=== PATIENT | female | born 1940 | race Caucasian/White ===

== ENCOUNTER 2018-12-07 09:48 | Emergency (ER) | payer OTHER ==
[2018-12-07 10:05] VITALS: TEMP 98.5; BMI 31.5
--- NOTE | 2018-12-07 13:00 | PDOC ---
History of Present Illness - General Chief Complaint: Lightheaded Stated Complaint: DIZZYNESS Time Seen by Provider: 12/07/18 12:34 History Source: Patient Exam Limitations: No Limitations - History of Present Illness Initial Comments: 12/07/18 12:36 78YOF with h/o HTN, RLE DVT (dx 2 years ago and on ASA since that time), osteoarthritis, and multiple abdominal surgeries who p/w intermittent room- spinning dizziness which comes with nausea for the past 1.5 days, as well as pain to the back of her neck for the past 2 days. The daughter states that the symptoms started Friday night at which time they measured her blood pressure to be high at home, despite her reportedly taking her normal antihypertensive medication. Past History - Past Medical History Allergies/Adverse Reactions: Allergies Allergy/AdvReac Type Severity Reaction Status Date / Time Penicillins Allergy Verified 12/07/18 10:02 Home Medications: Ambulatory Orders Alendronate Sodium [Binosto] 70 mg PO WEEKLY 12/07/18 Amlodipine Besylate [Norvasc -] 10 mg PO DAILY 12/07/18 Hydrochlorothiazide [Hctz -] 25 mg PO DAILY 12/07/18 COPD: No HTN: Yes Other medical history: osteoporosis - Surgical History Appendectomy: Yes Cholecystectomy: Yes - Suicide/Smoking/Psychosocial Hx Smoking History: Never smoked Review of Systems - Review of Systems Able to Perform ROS?: Yes Comments:: 12/07/18 15:15 GEN: no fever, chills, malaise, generalized weakness, or weight change HEENT: no ear pain, sore throat, vision change, or eye pain CV: no chest pain, palpitations, lightheadedness, syncope, or edema RESP: no cough, wheezing, or SOB GI: nausea, no abdominal pain, vomiting, diarrhea, constipation, or white/black/ bloody stool : no dysuria, hematuria, incontinence, retention, bleeding, or discharge MSK: neck pain, no new back pain, muscle weakness/pain, or joint swelling/pain NEURO: vertigo, no headache, seizure, numbness, tingling, or focal weakness PSYCH: no substance use, no behavior change SKIN: no jaundice, no rash ROS otherwise negative except as noted in HPI *Physical Exam - Vital Signs Last Vital Signs Temp Pulse Resp BP Pulse Ox 98.5 F 82 19 152/74 97 12/07/18 10:03 12/07/18 10:03 12/07/18 10:03 12/07/18 10:03 12/07/18 10:03 - Physical Exam Comments: GENERAL: well-appearing, pleasant Bel[place]ian-speaking elderly female accompanied by family, A/Ox4, no distress, answers questions appropriately HEENT: PERRLA, EOMI, moist mucous membranes NECK/BACK: no midline ttp, no spinal stepoff or deformity, no hematoma, full ROM , neck supple CARDIOVASCULAR: regular rate/rhythm, normal S1S2, no MGR, strong peripheral pulses, capillary refill <2 seconds, extremities wwp, no edema LUNGS/RESPIRATORY: no respiratory distress, CTAB GI/ABDOMEN: symmetric [id number], normoactive BS, soft, no ttp, no midline pulsatile masses : no CVA tenderness EXTREMITIES: no muscle atrophy, no acute deformity SKIN: warm and dry, no pallor, no jaundice, no rash, no bruising, no skin breakdown, no cuts, no lesions NEUROLOGICAL: GCS 15, CN II-XII grossly intact, 5/5 strength proximally and distally, no facial droop, gait not tested, HINTS exam and [place]-Hallpike deferred 2/2 neck pain ED Treatment Course - LABORATORY CBC & Chemistry Diagram: 12/07/18 13:04 12/07/18 13:04 Medical Decision Making - Medical Decision Making 12/07/18 15:18 78YOF p/w room-spinning dizziness x1.5 days and neck pain x2 days. Initial Vital Signs Temp Pulse Resp BP Pulse Ox 98.5 F 82 19 152/74 97 12/07/18 10:03 12/07/18 10:03 12/07/18 10:03 12/07/18 10:03 12/07/18 10:03 Exam: As noted in Physical Exam section. DDX IBNLT: There is concern for neck artery dissection given vertigo+neck pain. Other possibilities peripheral cause (BPPV, otitis media, vestibular neuritis, herpes zoster oticus AKA Cy Cespedes syndrome, Meniere disease, labyrinthine concussion, perilymphatic fistula, semicircular canal dehiscence syndrome, Marino syndrome, recurrent vestibulopathy, acoustic neuroma, aminoglycoside toxicity), central cause (brainstem ischemia or cerebellar infarction or hemorrhage e.g. thromboembolism/thrombosis/dissection, vestibular migraine, multiple sclerosis, Chiari malformation, episodic ataxia type 2), or non- vertiginous cause of dizziness (i.e. lightheadedness c/f pre-syncope). W/U ordered: Labs as noted below, EKG CXR Head CT Neck CTA TX ordered: IV, IVF, meclizine, Ofirmev, IVF 500 cc EKG: Reviewed; results as noted in ECG Review section. Head CT WWO: Nothing acute Neck CTA: Nothing acute Laboratory Tests 12/07/18 12/07/18 12/07/18 13:04 13:04 13:04 WBC 8.1 RBC 4.59 Hgb 13.5 Hct 40.6 MCV 88.5 MCH 29.3 MCHC 33.1 RDW 14.4 Plt Count 166 MPV 11.2 H Absolute Neuts (auto) 4.8 Neutrophils % 59.3 Lymphocytes % 22.8 Monocytes % 16.3 H Eosinophils % 0.8 Basophils % 0.8 Nucleated RBC % 0 PT with INR INR Sodium 138 Potassium 3.8 Chloride 102 Carbon Dioxide 32 Anion Gap 4 L BUN 9.0 Creatinine 0.7 Est GFR (CKD-EPI)AfAm 94.84 Est GFR (CKD-EPI)NonAf 81.83 Random Glucose 97 Calcium 8.9 Magnesium 2.6 H Total Bilirubin 0.3 AST 35 ALT 61 Alkaline Phosphatase 81 Creatine Kinase 150 Creatine Kinase Index 0.9 CK-MB (CK-2) 1.4 Troponin I < 0.02 B-Natriuretic Peptide 96.4 Total Protein 8.0 Albumin 4.3 12/07/18 13:04 WBC RBC Hgb Hct MCV MCH MCHC RDW Plt Count MPV Absolute Neuts (auto) Neutrophils % Lymphocytes % Monocytes % Eosinophils % Basophils % Nucleated RBC % PT with INR 12.70 INR 1.08 Sodium Potassium Chloride Carbon Dioxide Anion Gap BUN Creatinine Est GFR (CKD-EPI)AfAm Est GFR (CKD-EPI)NonAf Random Glucose Calcium Magnesium Total Bilirubin AST ALT Alkaline Phosphatase Creatine Kinase Creatine Kinase Index CK-MB (CK-2) Troponin I B-Natriuretic Peptide Total Protein Albumin 12/07/18 17:44 At this time the patient states she is feeling less dizzy even when moving her head. She notes pain and all symptoms have partially improved. She is not getting Ofirmev, meclizine, IVF. Will re-assess when meds have completed and decide on dispo. Vital Signs Temperature 98.5 F 12/07/18 10:03 Pulse Rate 77 12/07/18 17:56 Respiratory Rate 18 12/07/18 17:56 Blood Pressure 157/80 12/07/18 17:56 O2 Sat by Pulse Oximetry (%) 98 12/07/18 17:56 This patient has gotten significant relief of symptoms while in the ED. On last reassessment, vitals are wnl, pain is reasonably controlled, and exam is benign. Workup is not concerning for emergency-level pathology at this time. This patient is appropriate for discharge with close outpatient follow up. They are comfortable with this plan and will follow up with their primary care provider in 1-3 days. They are given referral information for Neurology in case they need it. Specific return precautions are discussed and they will come back to the ER if necessary. *DC/Admit/Observation/Transfer Diagnosis at time of Disposition: Vertigo, Neck pain - Discharge Dispostion Disposition: HOME Condition at time of disposition: Stable Decision to Admit order: No - Referrals Referrals: Jesi Bautista MD [Primary Care Provider] - - Patient Instructions Additional Instructions: You were seen in the [facility]. We did an exam, laboratory work on your blood and urine, an electrocardiogram, and imaging studies, and we did not find any concerning results. We gave you medications here in the department which did help your symptoms. After our assessment, we do not believe you are having a medical emergency at this time, and we believe you are safe to go home. Please pecan picker the [id number] medication Meclizine at the pharmacy and take this as instructed on the bottle. Please follow up with your regular PCP in 1-3 days. Call their clinic, tell them you were seen in the ER, and tell them you need a follow-up. If you have any new or worsening symptoms ( especially headache, worsening neck pain, persistent vertigo that you cannot control with medications at home, numbness, tingling, new weakness of one or more parts of your body, vision changes, slurred speech, loss of consciousness, or seizures) please come back to the ER at any time (24 hours a day). If you are having severe or life threatening symptoms, or symptoms that make it unsafe to drive or have someone drive you, please call 911. - Post Discharge Activity
[2018-12-07] MEDS ORDERED: ACETAMINOPHEN 1000 MG/100 ML VIAL (NON FORMULARY) IVPB ONE (13:22)
[2018-12-07 13:26] LABS: BASO % 0.8 % (0-2.0); EOS % 0.8 % (0-4.5); HEMATOCRIT 40.6 % (32.4-45.2); HEMOGLOBIN 13.5 GM/dL (10.7-15.3); LYMPH % 22.8 % (8-40); MCH 29.3 pg (25.7-33.7); MCHC 33.1 g/dl (32.0-36.0); MEAN CELL VOLUME 88.5 fl (80-96); MEAN PLT VOLUME 11.2 fl (7.5-11.1); MONO % 16.3 % (3.8-10.2); NEUT % 59.3 % (42.8-82.8); PLATELET COUNT 166 K/MM3 (134-434); RBC 4.59 M/mm3 (3.60-5.2); RDW 14.4 % (11.6-15.6); WHITE BLOOD COUNT 8.1 K/mm3 (4.0-10.0)
--- NOTE | 2018-12-07 13:53 | PDOC ---
Documentation entered by Vic Amaya SCRIBE, acting as scribe for Maggie Guillermo MD. Maggie Guillermo MD: This documentation has been prepared by the Jose Luis evans Joel, SCRIBE, under my direction and personally reviewed by me in its entirety. I confirm that the documentation accurately reflects all work, treatment, procedures, and medical decision making performed by me. Attending Attestation - Resident Resident Name: MohanPaola - ED Attending Attestation I have performed the following: I have examined & evaluated the patient, The case was reviewed & discussed with the resident, I agree w/resident's findings & plan, Exceptions are as noted - HPI HPI: 12/07/18 13:24 The patient is an 78 year old female with a significant PMH of HTN and osteoporosis who presents to the emergency department for evaluation of dizziness and neck pain beginning approximately this morning. The patients family states the patient felt very dizzy when getting up from bed and felt off balance, with associated nausea and neck pain. The patient states her dizziness is aggravated by lying down. She also endorses a mild associated headache. The patient denies chest pain and shortness of breath. Denies fever, chills, vomit, diarrhea and constipation. Denies dysuria, frequency, urgency and hematuria. Allergies: Penicillin Past surgical history: Appendectomy. Cholecystectomy. Social history: No reported cigarette, alcohol, or drug use. PCP: Dr. Bautista - Physicial Exam PE: 12/07/18 13:24 GENERAL: Awake, alert, and fully oriented, in no acute distress HEAD: (+) Avoids turning head to left. No signs of trauma EYES: PERRLA, EOMI, sclera anicteric, conjunctiva clear ENT: Auricles normal inspection, hearing grossly normal, nares patent, oropharynx clear without exudates. Moist mucosa NECK: Normal ROM, supple, no lymphadenopathy, JVD, or masses LUNGS: Breath sounds equal, clear to auscultation bilaterally. No wheezes, and no crackles HEART: Regular rate and rhythm, normal S1 and S2, no murmurs, rubs or gallops ABDOMEN: Soft, nontender, normoactive bowel sounds. No guarding, no rebound. No masses EXTREMITIES: Normal range of motion, no edema. No clubbing or cyanosis. No cords, erythema, or tenderness NEUROLOGICAL: Cranial nerves II through XII grossly intact. Normal speech. Gait exam and [place]-Hallpike deferred due to nature of complaint. SKIN: Warm, Dry, normal turgor, no rashes or lesions noted. - Medical Decision Making Pt presents with posterior neck pain, dizziness, vertiginous symptoms. In light of the neck pain, will obtain CTA of the neck to r/o vertebrobasilar dissection. Will obtain CTH to r/o cerebellar CVA.
[2018-12-07 13:57] LABS: ALBUMIN 4.3 g/dl (3.4-5.0); BILIRUBIN,TOTAL 0.3 mg/dL (0.2-1); CALCIUM 8.9 mg/dL (8.5-10.1); CREATININE 0.7 mg/dL (0.55-1.3); MAGNESIUM 2.6 mg/dL (1.8-2.4); POTASSIUM 3.8 mmol/L (3.5-5.1)
[2018-12-07] MEDS ORDERED: ACETAMINOPHEN INJECTION 100 ML IVPB ONE (14:05)
[2018-12-07 14:16] LABS: INR 1.08 (0.83-1.09); N-TERMINAL BNP 96.4 pg/ml (5-450); PROTHROMBIN TIME (PATIENT) 12.7 SEC (9.7-13.0)
[2018-12-07] MEDS ORDERED: SODIUM CHLORIDE 0.9% 500 ML INFUS.BAG IV ONE (15:21)
[2018-12-07] MEDS ORDERED: MECLIZINE HCL 25 MG TABLET (FP) PO ONE (15:21)
[2018-12-07] MEDS ORDERED: ONDANSETRON 4 MG/2 ML VIAL IVPUSH ONE (15:22)
[2018-12-07] MEDS ORDERED: ONDANSETRON 4 MG/2 ML VIAL ONE (17:28)
[2018-12-07] MEDS ORDERED: MECLIZINE HCL 25 MG TABLET (FP) ONE (17:28)
[2018-12-07 17:57] VITALS: BP 157/80; PULSE 77
--- NOTE | 2018-12-08 14:44 | EKG ---
Test Reason : Blood Pressure : / mmHG Vent. Rate : 077 BPM Atrial Rate : 077 BPM P-R Int : 180 ms QRS Dur : 080 ms QT Int : 420 ms P-R-T Axes : 049 008 010 degrees QTc Int : 475 ms POOR DATA QUALITY, INTERPRETATION MAY BE ADVERSELY AFFECTED NORMAL SINUS RHYTHM NORMAL ECG NO PREVIOUS ECGS AVAILABLE Confirmed by Quoc Morris MD ([id number]) on 12/08/2018 2:44:01 PM Referred By: Confirmed By:Quoc Morris MD
== END 2018-12-07 20:03 | disposition home or self-care (01) ==
LOC: JER 09:48
PROC: 3E033GC Introduction of Other Therapeutic Substance into Peripheral Vein, Percutaneous Approach (ICD-10-PCS; principal; 2018-12-07)
PROC: 3E033NZ Introduction of Analgesics, Hypnotics, Sedatives into Peripheral Vein, Percutaneous Approach (ICD-10-PCS; 2018-12-07)
DX: R42 Dizziness and giddiness (principal); M54.2 Cervicalgia; I10 Essential (primary) hypertension; M19.90 Unspecified osteoarthritis, unspecified site; Z86.718 Personal history of other venous thrombosis and embolism; Z79.82 Long term (current) use of aspirin
CPT/HCPCS: 36415; 70450-TC; 70498-TC; 80053; 82550; 82553; 83735; 83880; 84484; 85025; 85610; 93005; 93010; 96374; 96375; 99282-25; J0131

== ENCOUNTER 2020-01-29 17:55 | Inpatient (IN) | payer OTHER ==
[2020-01-29] MEDS ORDERED: SODIUM CHLORIDE IV ONE (19:28)
--- NOTE | 2020-01-29 19:48 | PDOC ---
History of Present Illness - General Chief Complaint: Respiratory Stated Complaint: FEVER,SHORTNESS OF BREATH Time Seen by Provider: 01/29/20 18:32 - History of Present Illness Initial Comments: HPI Pt is an 79 yo F with PMH of asthma, HTN, RLE DVT (2 years ago, on ASA since), OA, vertigo, and hospitalization for COVID 19 infection in July (CT at the time with bilateral UL + LL ground glass opacities; was treated with azithromycin) presenting with increased SOB since yesterday. Associated w/chills, fatigue, myalgia, and mild nonproductive cough since yesterday as well as fever (home temp 102) since earlier today. Pt's daughter reports that patient complained of R "lung pain" since yesterday as well but patient denies chest pain and reports that the pain is in her R upper back. Pt reports that the pain is worse with mo ving around or bending over. Pt also reports increase dizziness that is similar to her vertigo and mild nausea. Denies vomiting, diarrhea, constipation, changes in urination, wheezing, leg pain, congestion, rhinorrhea, and sore throat. PMHX: as in HPI PSHX: multiple abdominal surgeries since Meds: Home Medications Medication Instructions Recorded Amlodipine Besylate [Norvasc -] 10 mg PO DAILY 08/16/19 Cetirizine HCl [Zyrtec -] 10 mg PO DAILY 08/16/19 Ibuprofen [Advil -] 400 mg PO TID 01/29/20 Allergies: Penicillin allergy (pt's daughter reports severe reaction with anaphylaxis) Tob: denies Etoh: denies Rec drugs: denies PCP: Dr. Jesi LAMBERT GENERAL/CONSTITUTIONAL: No weakness. + fever, chills, + fatigue HEAD, EYES, EARS, NOSE AND THROAT: No change in vision. No ear pain or discharge. No sore throat. CARDIOVASCULAR: +shortness of breath, questionable chest pain hx RESPIRATORY: No wheezing, or hemoptysis. +mild nonproductive cough GASTROINTESTINAL: No vomiting, diarrhea or constipation. +mild nausea GENITOURINARY: No dysuria, frequency, or change in urination. MUSCULOSKELETAL: No joint or muscle swelling or pain. No neck pain. +mild upper back pain, + myalgia SKIN: No rash NEUROLOGIC: No headache, loss of consciousness, or change in strength/sensation. +vertigo ENDOCRINE: No increased thirst. No abnormal weight change HEMATOLOGIC/LYMPHATIC: No anemia, easy bleeding, + hx of DVT ALLERGIC/IMMUNOLOGIC: No hives or skin allergy. PE VS - O2 sat 94-96% seated; 92-93% with ambulation GENERAL: Awake, alert, and fully oriented, in no acute distress. Mild to moderate discomfort. HEAD: No signs of trauma, normocephalic, atraumatic EYES: PERRLA, EOMI, sclera anicteric, conjunctiva clear ENT: Auricles normal inspection, hearing grossly normal, nares patent, oropharynx clear without exudates. Moist mucosa. NECK: Normal ROM, supple, no lymphadenopathy, JVD, or masses. LUNGS: No distress, speaks full sentences, some coarse breath sounds on R; no wheezing HEART: tachycardic and regular rhythm, normal S1 and S2, no murmurs, rubs or gallops, peripheral pulses normal and equal bilaterally. ABDOMEN: Soft, nontender, normoactive bowel sounds. No guarding, no rebound. No masses EXTREMITIES : Normal inspection, no edema. No clubbing or cyanosis. No calf tenderness NEUROLOGICAL: Moving all extremities equally and spontaneously. Normal speech, normal gait, no focal sensorimotor deficits SKIN: Warm, Dry, normal turgor, no rashes or lesions noted 01/29/20 23:07 Past History - Medical History Allergies/Adverse Reactions: Allergies Allergy/AdvReac Type Severity Reaction Status Date / Time Penicillins Allergy Verified 01/29/20 18:05 Home Medications: Ambulatory Orders Amlodipine Besylate [Norvasc -] 10 mg PO DAILY 08/16/19 Cetirizine HCl [Zyrtec -] 10 mg PO DAILY 08/16/19 Ibuprofen [Advil -] 400 mg PO TID 01/29/20 COPD: No HTN: Yes - Surgical History Appendectomy: Yes Cholecystectomy: Yes - Psycho-Social/Smoking History Smoking History: Never smoked Have you smoked in the past 12 months: No *Physical Exam - Vital Signs Last Vital Signs Temp Pulse Resp BP Pulse Ox 102.6 F H 102 H 20 163/96 94 L 01/29/20 18:05 01/29/20 18:05 01/29/20 18:05 01/29/20 18:05 01/29/20 18:05 ED Treatment Course - LABORATORY CBC & Chemistry Diagram: 01/29/20 20:50 01/29/20 20:50 Medical Decision Making - Medical Decision Making MDM Pt is an 79 yo F with PMH of asthma, HTN, RLE DVT (2 years ago, on ASA since), OA, vertigo, and hospitalization for COVID 19 infection in July (CT at the time with bilateral UL + LL ground glass opacities; was treated with azithromycin) presenting with increased SOB since yesterday. DDX including but not limited to: community acquired pneumonia, COVID-19 reinfection, infectious mononucleosis, PE (less likely, but will r/o) W/U: -CBC, CMP, coags, lactate -D-dimer -CK- MB, CPK, CRP, ferritin, LDH, d bili -troponin -Blood cx, Urine cx -CXR pending final read -EKG showing NSR, sinus tachycardia (102 bpm), GA interval (176), QRS 78, QT/Qtc (340/443) TX: - IV tylenol - IVF hydration with NS - IV levofloxacin - supp O2 (2L NC) 01/29/20 22:17 labs with elevated D-Dimer, LDH Will get chest CTA. 01/29/20 23:08 01/29/20 23:09 Discharge - Follow up/Referral Referrals: Jesi Bautista MD [Primary Care Provider] - - Patient Discharge Instructions - Post Discharge Activity
[2020-01-29] MEDS ORDERED: ACETAMINOPHEN 1000 MG/100 ML VIAL (NON FORMULARY) IVPB ONE (19:50)
[2020-01-29] MEDS ORDERED: ACETAMINOPHEN INJECTION 100 ML IVPB ONE (20:27)
[2020-01-29 21:13] LABS: BASO % 0.4 % (0-2.0); EOS % 0.8 % (0-4.5); HEMATOCRIT 40.9 % (32.4-45.2); HEMOGLOBIN 13.7 GM/dL (10.7-15.3); LYMPH % 15.1 % (8-40); MCH 29.5 pg (25.7-33.7); MCHC 33.5 g/dl (32.0-36.0); MEAN CELL VOLUME 88.3 fl (80-96); MEAN PLT VOLUME 11.5 fl (7.5-11.1); MONO % 22.9 % (3.8-10.2); NEUT % 60.8 % (42.8-82.8); PLATELET COUNT 127 K/MM3 (134-434); RBC 4.63 M/mm3 (3.60-5.2); RDW 14.5 % (11.6-15.6); WHITE BLOOD COUNT 6.1 K/mm3 (4.0-10.0)
--- NOTE | 2020-01-29 21:26 | PDOC ---
Attending Attestation - Resident Resident Name: Sebastien Mcdowell - ED Attending Attestation I have performed the following: I have examined & evaluated the patient, The case was reviewed & discussed with the resident, I agree w/resident's findings & plan - HPI HPI: 01/29/20 21:25 Pt comes with fever and feeling unwell for a few days. States that today she was having body aches and some SOB. Pt has a hx of COVID. She may have pneumonia at this time; unlikely to be covid. Pt has no dysuria. - Physicial Exam PE: 01/29/20 21:38 Pt is febrile General: awake, alert, fully oriented, in no acute distress, well developed, well nourished Head: normocephalic, atraumatic Eyes: PERRL, EOMI, anicteric sclera, conjunctiva clear ENT: Auricles normal inspection, hearing grossly normal, oropharynx clear wi thout exudates, no nasal congestion, dry mucous membranes Neck: supple, normal ROM, no LAD, JVD or masses Lung: equal breath sounds b/l, CTA b/l, no crackles, wheezes; no distress, speaks full sentences Heart: RRR, normal S1, S2, no murmurs appreciated Abdomen: soft, non tender, normoactive bowel sounds, no guarding, rebound, masses Extremities: normal ROM, no edema, no erythema or tenderness, DP/PT pulses 2+ and symmetric Neuro: Cranial nerves: Cranial nerves II through XII are intact Motor: The upper extremities are 5/5 in all muscle groups. The lower extremities are 5/5 in all muscle groups. No pronator drift. Sensation: Sensation is intact to light touch throughout. Gait: Normal Skin: warm, dry, no rashes or lesions noted, normal skin turgor - Medical Decision Making 01/29/20 21:26 Pt has a fever she received IV tylenol Pt has d-dimer of 1300s awaiting chem results and then we will send her for CTA chest. Pt also has elevated mono; this may be mononucleosis. Discharge - Discharge Information Problems reviewed: Yes Clinical Impression/Diagnosis: Fever Qualifiers: Fever type: unspecified Qualified Code(s): R50.9 - Fever, unspecified Condition: Stable Disposition: HOME - Follow up/Referral - Patient Discharge Instructions - Post Discharge Activity
[2020-01-29 21:32] LABS: VENOUS BASE EXCESS -0.6 mmol/L (-2-2); VENOUS O2 SATURATION 56.7 % (70-80); VENOUS PCO2 50.4 mmHg (38-52); VENOUS PH 7.333 (7.310-7.410)
[2020-01-29 21:36] LABS: INR 1.13 (0.83-1.09); PROTHROMBIN TIME (PATIENT) 13.3 SEC (9.7-13.0)
[2020-01-29 21:39] LABS: ACTIVATED PTT 32.6 SECONDS (25.2-36.5)
[2020-01-29 21:47] LABS: ALBUMIN 4.6 g/dl (3.4-5.0); ALK PHOS 84 U/L (45-117); ANION GAP 8 MMOL/L (8-16); BILIRUBIN,TOTAL 0.5 mg/dL (0.2-1); BLOOD UREA NITROGEN 11.3 mg/dL (7-18); CALCIUM 9.4 mg/dL (8.5-10.1); CHLORIDE 100 mmol/L (98-107); CO2 29 mmol/L (21-32); CREATININE 0.9 mg/dL (0.55-1.3); GLUCOSE,RANDOM 124 mg/dL (74-106); POTASSIUM 4.2 mmol/L (3.5-5.1); SGOT/AST 95 U/L (15-37); SGPT/ALT 107 U/L (13-61); SODIUM 136 mmol/L (136-145); TOT PROT 8.7 g/dl (6.4-8.2)
[2020-01-29 22:03] LABS: BILIRUBIN,DIRECT 0.2 mg/dL (0.0-0.2)
--- NOTE | 2020-01-30 00:02 | PN ---
Teaching Attending Note Name of Resident: Meliza Peña ATTENDING PHYSICIAN STATEMENT I saw and evaluated the patient. I reviewed the resident's note and discussed the case with the resident. I agree with the resident's findings and plan as documented. SUBJECTIVE: 79yoF with h/o asthma, HTN, RLE DVT, and COVID-19 pneumonia 07/2019 who presents with shortness of breath x2 days and fever. Patient endorses dry cough but no chest pain, palpitations, abdominal pain, nausea, vomiting, diarrhea. She was afebrile in the ED, labs unremarkable except mildly elevated AST, ALT, and D- dimer. CXR does not appear to show consolidation or pulmonary edema. CTA was obtained, prelim read negative for PE with mild dependent atelectasis but no other acute findings. Noted incidental finding of fatty liver. OBJECTIVE: Vital Signs - 24 hr 01/29/20 01/30/20 18:05 01:13 Temperature 102.6 F H 99.6 F Pulse Rate 102 H Pulse Rate [ 91 H Left Apical] Respiratory 20 20 Rate Blood Pressure 163/96 Blood Pressure 157/74 [Left Arm] O2 Sat by Pulse 94 L 95 Oximetry (%) EXAM Gen: Elderly woman, uncomfortable appearing but in no acute distress HEENT: NC/AT CV: RRR, no MRG appreciated Resp: Mildly tachypneic but unlabored, CTAB. No wheezing/rales/rhonchi Abd: Soft, NT, ND Ext: No edema Neuro: CN II-XII grossly intact, moving all extremities Laboratory Results - last 24 hr 01/29/20 01/29/20 01/29/20 20:50 20:50 20:50 WBC 6.1 RBC 4.63 Hgb 13.7 Hct 40.9 D MCV 88.3 MCH 29.5 MCHC 33.5 RDW 14.5 Plt Count 127 L D MPV 11.5 H Absolute Neuts (auto) 3.7 Neutrophils % 60.8 Neutrophils % (Manual) 59.4 Band Neutrophils % 4.2 Lymphocytes % 15.1 D Lymphocytes % (Manual) 18.7 Monocytes % 22.9 H Monocytes % (Manual) 18 H Eosinophils % 0.8 Eosinophils % (Manual) 0.0 D Basophils % 0.4 Basophils % (Manual) 0.0 Myelocytes % (Man) 0 Promyelocytes % (Man) 0 Blast Cells % (Manual) 0 Nucleated RBC % 0 Metamyelocytes 0 PT with INR 13.30 H INR 1.13 H PTT (Actin FS) 32.6 D-Dimer VBG pH 7.333 POC VBG pCO2 50.4 POC VBG pO2 32.0 VBG HCO3 26.2 VBG O2 Sat (Solomon) 56.7 L VBG Base Excess -0.6 Sodium Potassium Chloride Carbon Dioxide Anion Gap BUN Creatinine Est GFR (CKD-EPI)AfAm Est GFR (CKD-EPI)NonAf Random Glucose Lactic Acid Calcium Ferritin Total Bilirubin Direct Bilirubin AST ALT Alkaline Phosphatase LD Total Creatine Kinase Creatine Kinase Index CK-MB (CK-2) Troponin I C-Reactive Protein Total Protein Albumin 01/29/20 01/29/20 01/29/20 20:50 20:50 20:50 WBC RBC Hgb Hct MCV MCH MCHC RDW Plt Count MPV Absolute Neuts (auto) Neutrophils % Neutrophils % (Manual) Band Neutrophils % Lymphocytes % Lymphocytes % (Manual) Monocytes % Monocytes % (Manual) Eosinophils % Eosinophils % (Manual) Basophils % Basophils % (Manual) Myelocytes % (Man) Promyelocytes % (Man) Blast Cells % (Manual) Nucleated RBC % Metamyelocytes PT with INR INR PTT (Actin FS) D-Dimer VBG pH POC VBG pCO2 POC VBG pO2 VBG HCO3 VBG O2 Sat (Solomon) VBG Base Excess Sodium 136 Potassium 4.2 Chloride 100 Carbon Dioxide 29 Anion Gap 8 BUN 11.3 Creatinine 0.9 Est GFR (CKD-EPI)AfAm 69.50 Est GFR (CKD-EPI)NonAf 59.96 Random Glucose 124 H Lactic Acid 1.3 Calcium 9.4 Ferritin 98.4 Total Bilirubin 0.5 Direct Bilirubin 0.2 AST 95 H ALT 107 H Alkaline Phosphatase 84 LD Total 315 H Creatine Kinase 225 H Creatine Kinase Index < 0.4 CK-MB (CK-2) < 1.0 Troponin I < 0.02 C-Reactive Protein 1.0 H Total Protein 8.7 H Albumin 4.6 01/29/20 01/29/20 20:50 20:50 WBC RBC Hgb Hct MCV MCH MCHC RDW Plt Count MPV Absolute Neuts (auto) Neutrophils % Neutrophils % (Manual) Band Neutrophils % Lymphocytes % Lymphocytes % (Manual) Monocytes % Monocytes % (Manual) Eosinophils % Eosinophils % (Manual) Basophils % Basophils % (Manual) Myelocytes % (Man) Promyelocytes % (Man) Blast Cells % (Manual) Nucleated RBC % Metamyelocytes PT with INR INR PTT (Actin FS) D-Dimer 1379 H VBG pH POC VBG pCO2 POC VBG pO2 VBG HCO3 VBG O2 Sat (Solomon) VBG Base Excess Sodium Potassium Chloride Carbon Dioxide Anion Gap BUN Creatinine Est GFR (CKD-EPI)AfAm Est GFR (CKD-EPI)NonAf Random Glucose Lactic Acid Calcium Ferritin Total Bilirubin Direct Bilirubin AST ALT Alkaline Phosphatase LD Total Creatine Kinase Creatine Kinase Index CK-MB (CK-2) < 1.0 Troponin I C-Reactive Protein Total Protein Albumin Imaging, EKG reviewed in chart ASSESSMENT AND PLAN: 79yoF with h/o asthma, HTN, RLE DVT, and COVID-19 pneumonia 07/2019 who presents with shortness of breath x2 days and fever. SIRS, source unclear Complaining of SOB but imaging and exam are reassuring No known exposures but with mild transaminitis, thrombocytopenia - ?tick borne illness - f/u UA, culture - f/u blood cultures - monitor for localizing signs/sx - ID consult SOB Noted h/o asthma but no wheezing on exam and O2 sat appropriate on room air - albuterol neb PRN h/o DVT: patient unsure if she is on anticoagulation, please confirm in AM DVT ppx: Lovenox subq
--- NOTE | 2020-01-30 01:04 | HP ---
CHIEF COMPLAINT: SOB PCP: Jesi Bautista HISTORY OF PRESENT ILLNESS: 79 y.o. F PMH asthma, HTN, RLE DVT (diagnosed 2 yrs ago, pt not sure if still on AC?), OA, vertigo, COVID-19 pneumonitis 07/2019 presenting to the ED for shortness of breath. Patient states for the past 2 days she has become increasingly short of breath. Also endorsing chills and home fevers of 102F, as well as back pain which she had chronically but has exacerbated over the past day. Patient endorsing dry mild cough, no sputum production. She has been mostly staying home due to these symptoms. No sick contacts in the household. Patient denies CP/ palpitations/ N/V/D. ER course was notable for: (1)NS 1200mL (2) Levaquin 500 (pt is pcn allergic) (3) fever 102F (4) D dimer: 1379, LDH 315 Recent Travel: denies PAST MEDICAL HISTORY: as per hpi PAST SURGICAL HISTORY: denies Social History: lives with her daughter Smoking: denies Alcohol: denies Drugs: denies Allergies Penicillins Allergy (Verified 01/29/20 18:05) HOME MEDICATIONS: Home Medications Medication Instructions Recorded Amlodipine Besylate [Norvasc -] 10 mg PO DAILY 08/16/19 Cetirizine HCl [Zyrtec -] 10 mg PO DAILY 08/16/19 Ibuprofen [Advil -] 400 mg PO TID 01/29/20 PHYSICAL EXAMINATION Vital Signs - 24 hr 01/29/20 18:05 Temperature 102.6 F H Pulse Rate 102 H Respiratory 20 Rate Blood Pressure 163/96 O2 Sat by Pulse 94 L Oximetry (%) GENERAL: Awake, alert, and fully oriented, in no acute distress. HEENT: NCAT. No JVD. MMM. LUNGS: Breath sounds decre at b/l bases. No wheezes, and no crackles. No accessory muscle use. HEART: Regular rate and rhythm, normal S1 and S2 without murmur, rub or gallop. ABDOMEN: Soft, nontender, not distended, normoactive bowel sounds. No CVA tenderness. EXTREMITIES: 2+ pulses, warm, well-perfused. No calf tenderness. 1+ nonpitting peripheral edema. SKIN: Warm, dry, normal turgor Laboratory Results - last 24 hr 0901/29/20 01/29/20 20:50 20:50 20:50 WBC 6.1 RBC 4.63 Hgb 13.7 Hct 40.9 D MCV 88.3 MCH 29.5 MCHC 33.5 RDW 14.5 Plt Count 127 L D MPV 11.5 H Absolute Neuts (auto) 3.7 Neutrophils % 60.8 Neutrophils % (Manual) 59.4 Band Neutrophils % 4.2 Lymphocytes % 15.1 D Lymphocytes % (Manual) 18.7 Monocytes % 22.9 H Monocytes % (Manual) 18 H Eosinophils % 0.8 Eosinophils % (Manual) 0.0 D Basophils % 0.4 Basophils % (Manual) 0.0 Myelocytes % (Man) 0 Promyelocytes % (Man) 0 Blast Cells % (Manual) 0 Nucleated RBC % 0 Metamyelocytes 0 PT with INR 13.30 H INR 1.13 H PTT (Actin FS) 32.6 D-Dimer VBG pH 7.333 POC VBG pCO2 50.4 POC VBG pO2 32.0 VBG HCO3 26.2 VBG O2 Sat (Solomon) 56.7 L VBG Base Excess -0.6 Sodium Potassium Chloride Carbon Dioxide Anion Gap BUN Creatinine Est GFR (CKD-EPI)AfAm Est GFR (CKD-EPI)NonAf Random Glucose Lactic Acid Calcium Ferritin Total Bilirubin Direct Bilirubin AST ALT Alkaline Phosphatase LD Total Creatine Kinase Creatine Kinase Index CK-MB (CK-2) Troponin I C-Reactive Protein Total Protein Albumin 01/29/20 01/29/20 01/29/20 20:50 20:50 20:50 WBC RBC Hgb Hct MCV MCH MCHC RDW Plt Count MPV Absolute Neuts (auto) Neutrophils % Neutrophils % (Manual) Band Neutrophils % Lymphocytes % Lymphocytes % (Manual) Monocytes % Monocytes % (Manual) Eosinophils % Eosinophils % (Manual) Basophils % Basophils % (Manual) Myelocytes % (Man) Promyelocytes % (Man) Blast Cells % (Manual) Nucleated RBC % Metamyelocytes PT with INR INR PTT (Actin FS) D-Dimer VBG pH POC VBG pCO2 POC VBG pO2 VBG HCO3 VBG O2 Sat (Solomon) VBG Base Excess Sodium 136 Potassium 4.2 Chloride 100 Carbon Dioxide 29 Anion Gap 8 BUN 11.3 Creatinine 0.9 Est GFR (CKD-EPI)AfAm 69.50 Est GFR (CKD-EPI)NonAf 59.96 Random Glucose 124 H Lactic Acid 1.3 Calcium 9.4 Ferritin 98.4 Total Bilirubin 0.5 Direct Bilirubin 0.2 AST 95 H ALT 107 H Alkaline Phosphatase 84 LD Total 315 H Creatine Kinase 225 H Creatine Kinase Index < 0.4 CK-MB (CK-2) < 1.0 Troponin I < 0.02 C-Reactive Protein 1.0 H Total Protein 8.7 H Albumin 4.6 01/29/20 01/29/20 20:50 20:50 WBC RBC Hgb Hct MCV MCH MCHC RDW Plt Count MPV Absolute Neuts (auto) Neutrophils % Neutrophils % (Manual) Band Neutrophils % Lymphocytes % Lymphocytes % (Manual) Monocytes % Monocytes % (Manual) Eosinophils % Eosinophils % (Manual) Basophils % Basophils % (Manual) Myelocytes % (Man) Promyelocytes % (Man) Blast Cells % (Manual) Nucleated RBC % Metamyelocytes PT with INR INR PTT (Actin FS) D-Dimer 1379 H VBG pH POC VBG pCO2 POC VBG pO2 VBG HCO3 VBG O2 Sat (Solomon) VBG Base Excess Sodium Potassium Chloride Carbon Dioxide Anion Gap BUN Creatinine Est GFR (CKD-EPI)AfAm Est GFR (CKD-EPI)NonAf Random Glucose Lactic Acid Calcium Ferritin Total Bilirubin Direct Bilirubin AST ALT Alkaline Phosphatase LD Total Creatine Kinase Creatine Kinase Index CK-MB (CK-2) < 1.0 Troponin I C-Reactive Protein Total Protein Albumin ASSESSMENT/PLAN: 79 y.o. F PMH asthma, HTN, RLE DVT (diagnosed 2 yrs ago, pt not sure if still on AC?), OA, vertigo, COVID-19 pneumonitis 07/2019 presenting to the ED for shortness of breath. #Sepsis 2/2 possible CAP vs COVID-19 reinfection/ reactive sequelae #Shortness of breath -f/u COVID-19 PCR -CXR showing no acute infiltrates -CTA chest to r.o PE: nighthawk read -- No evidence of acute pathology although evaluation is slightly limited by motion artifact and there is mildly suboptimal opacification of the pulmonary arteries. -D-dimers elevated, trend -trend inflamm markers, poss elevated in setting of post covid-19 residual effects -mono swab sent in ED d/t monocytosis, however monocytosis is chronic. f/u results. -f/u cultures (blood/ urine/ sputum) -f/u UA -Urine ag for legionella/ s pneumo -aspiration precautions -O2 supplementation maintain SaO2 >90% #RLE DVT -Patient unsure if still on AC- needs med rec -prophylactic lovenox for now #HTN -Norvasc 10mg daily resume d(home med) -monitor BP #FEN -no fluids -trend & replete lytes prn -Na controlled diet #PPX -lovenox 40 sq daily- f/u med rec regarding therapeutic ac #Dispo telemetry ATTENDING PHYSICIAN STATEMENT I saw and evaluated the patient. I reviewed the resident's note and discussed the case with the resident. I agree with the resident's findings and plan as documented. SUBJECTIVE: OBJECTIVE: ASSESSMENT AND PLAN:
[2020-01-30] MEDS: ACETAMINOPHEN 1000 MG/100 ML VIAL (NON FORMULARY) IVPB PRN ×2 (03:45→20:54)
[2020-01-30 05:18] VITALS: BMI 31.9
[2020-01-30 05:52] LABS: EPI CELLS 18 /uL (0-25.1); HYALINE CASTS 0 /uL (0-3.1); URINE APPEARANCE CLEAR; URINE BACTERIA 35 /uL (0-1359); URINE BILIRUBIN NEGATIVE (NEGATIVE); URINE COLOR YELLOW; URINE GLUCOSE (UA) NEGATIVE (NEGATIVE); URINE KETONE 1+ (NEGATIVE); URINE LEUK ESTERASE NEGATIVE (NEGATIVE); URINE NITRITE NEGATIVE (NEGATIVE); URINE PROTEIN 1+ (NEGATIVE); URINE RBC 25 /uL (0-23.9); URINE UROBILINOGEN 0.2 mg/dL (0.2-1.0); URINE WBC 14 /uL (0-25.8)
[2020-01-30 07:29] LABS: BASO % 0.3 % (0-2.0); EOS % 0.8 % (0-4.5); HEMATOCRIT 36.5 % (32.4-45.2); HEMOGLOBIN 12.2 GM/dL (10.7-15.3); LYMPH % 10.8 % (8-40); MCH 29.5 pg (25.7-33.7); MCHC 33.4 g/dl (32.0-36.0); MEAN CELL VOLUME 88.3 fl (80-96); MEAN PLT VOLUME 10.8 fl (7.5-11.1); MONO % 26.7 % (3.8-10.2); NEUT % 61.4 % (42.8-82.8); PLATELET COUNT 104 K/MM3 (134-434); RBC 4.14 M/mm3 (3.60-5.2); RDW 14.4 % (11.6-15.6); WHITE BLOOD COUNT 5.4 K/mm3 (4.0-10.0)
[2020-01-30 07:59] LABS: ALBUMIN 3.7 g/dl (3.4-5.0); BILIRUBIN,TOTAL 0.6 mg/dL (0.2-1); BLOOD UREA NITROGEN 8.1 mg/dL (7-18); CALCIUM 8.3 mg/dL (8.5-10.1); CREATININE 0.7 mg/dL (0.55-1.3); MAGNESIUM 1.8 mg/dL (1.8-2.4); PHOSPHOROUS 3.2 mg/dL (2.5-4.9); POTASSIUM 3.5 mmol/L (3.5-5.1); TOT PROT 7.2 g/dl (6.4-8.2)
[2020-01-30 09:52] LABS: ANISOCYTOSIS 1+; MACROCYTOSIS 0; PLATELET ESTIMATE DECREASED
[2020-01-30] MEDS: amLODIPine BESYLATE 10 MG TABLET (FP) PO SCH (10:25)
[2020-01-30] MEDS: ENOXAPARIN NA (PORCINE) 40 MG/0.4 ML DISP.SYRIN SQ SCH (10:25)
--- NOTE | 2020-01-30 12:42 | EKG ---
Test Reason : Blood Pressure : / mmHG Vent. Rate : 102 BPM Atrial Rate : 102 BPM P-R Int : 176 ms QRS Dur : 078 ms QT Int : 340 ms P-R-T Axes : 026 -29 032 degrees QTc Int : 443 ms SINUS TACHYCARDIA OTHERWISE NORMAL ECG WHEN COMPARED WITH ECG OF 16-AUG-2019 23:46, QRS AXIS SHIFTED LEFT Confirmed by Aiden Javier ([id number]) on 01/30/2020 12:41:39 PM Referred By: Confirmed By:Aiden Javier
--- NOTE | 2020-01-30 12:48 | PN ---
Physical Exam: SUBJECTIVE: Patient seen and examined She is comfortable has low-grade fever but no shortness of breath. Note she had COVID-19 in July positive. There is no history of any negative test in the past in the patient's chart OBJECTIVE: Vital Signs Period Temp Pulse Resp BP Sys/Santo Pulse Ox Last 24 Hr 99.6 F-102.6 F 91-107 20-22 149-163/68-96 94-96 Patient is comfortable HEENT normal Neck supple no JVD Lungs clear no wheezing Heart examination, normal heart sounds no arrhythmia. Abdomen nontender no organomegaly bowel sounds normal Extremities no edema no cyanosis normal pulses Neurologically he is alert awake oriented, nonfocal Skin no rash noted Laboratory Results - last 24 hr 01/29/20 01/29/20 01/29/20 20:50 20:50 20:50 WBC 6.1 RBC 4.63 Hgb 13.7 Hct 40.9 D MCV 88.3 MCH 29.5 MCHC 33.5 RDW 14.5 Plt Count 127 L D MPV 11.5 H Absolute Neuts (auto) 3.7 Neutrophils % 60.8 Neutrophils % (Manual) 59.4 Band Neutrophils % 4.2 Lymphocytes % 15.1 D Lymphocytes % (Manual) 18.7 Monocytes % 22.9 H Monocytes % (Manual) 18 H Eosinophils % 0.8 Eosinophils % (Manual) 0.0 D Basophils % 0.4 Basophils % (Manual) 0.0 Myelocytes % (Man) 0 Promyelocytes % (Man) 0 Blast Cells % (Manual) 0 Nucleated RBC % 0 Metamyelocytes 0 Hypochromia Platelet Estimate Platelet Comment Polychromasia Poikilocytosis Anisocytosis Microcytosis Macrocytosis Spherocytes PT with INR 13.30 H INR 1.13 H PTT (Actin FS) 32.6 D-Dimer VBG pH 7.333 POC VBG pCO2 50.4 POC VBG pO2 32.0 VBG HCO3 26.2 VBG O2 Sat (Solomon) 56.7 L VBG Base Excess -0.6 Sodium Potassium Chloride Carbon Dioxide Anion Gap BUN Creatinine Est GFR (CKD-EPI)AfAm Est GFR (CKD-EPI)NonAf Random Glucose Lactic Acid Calcium Phosphorus Magnesium Ferritin Total Bilirubin Direct Bilirubin AST ALT Alkaline Phosphatase LD Total Creatine Kinase Creatine Kinase Index CK-MB (CK-2) Troponin I C-Reactive Protein Total Protein Albumin Urine Color Urine Appearance Urine pH Ur Specific [place] Urine Protein Urine Glucose (UA) Urine Ketones Urine Blood Urine Nitrite Urine Bilirubin Urine Urobilinogen Ur Leukocyte Esterase Urine WBC (Auto) Urine RBC (Auto) Urine Casts (Auto) U Epithel Cells (Auto) Urine Bacteria (Auto) 01/29/20 01/29/20 01/29/20 20:50 20:50 20:50 WBC RBC Hgb Hct MCV MCH MCHC RDW Plt Count MPV Absolute Neuts (auto) Neutrophils % Neutrophils % (Manual) Band Neutrophils % Lymphocytes % Lymphocytes % (Manual) Monocytes % Monocytes % (Manual) Eosinophils % Eosinophils % (Manual) Basophils % Basophils % (Manual) Myelocytes % (Man) Promyelocytes % (Man) Blast Cells % (Manual) Nucleated RBC % Metamyelocytes Hypochromia Platelet Estimate Platelet Comment Polychromasia Poikilocytosis Anisocytosis Microcytosis Macrocytosis Spherocytes PT with INR INR PTT (Actin FS) D-Dimer VBG pH POC VBG pCO2 POC VBG pO2 VBG HCO3 VBG O2 Sat (Solomon) VBG Base Excess Sodium 136 Potassium 4.2 Chloride 100 Carbon Dioxide 29 Anion Gap 8 BUN 11.3 Creatinine 0.9 Est GFR (CKD-EPI)AfAm 69.50 Est GFR (CKD-EPI)NonAf 59.96 Random Glucose 124 H Lactic Acid 1.3 Calcium 9.4 Phosphorus Magnesium Ferritin 98.4 Total Bilirubin 0.5 Direct Bilirubin 0.2 AST 95 H ALT 107 H Alkaline Phosphatase 84 LD Total 315 H Creatine Kinase 225 H Creatine Kinase Index < 0.4 CK-MB (CK-2) < 1.0 Troponin I < 0.02 C-Reactive Protein 1.0 H Total Protein 8.7 H Albumin 4.6 Urine Color Urine Appearance Urine pH Ur Specific [place] Urine Protein Urine Glucose (UA) Urine Ketones Urine Blood Urine Nitrite Urine Bilirubin Urine Urobilinogen Ur Leukocyte Esterase Urine WBC (Auto) Urine RBC (Auto) Urine Casts (Auto) U Epithel Cells (Auto) Urine Bacteria (Auto) 01/29/20 01/29/20 01/30/20 20:50 20:50 05:00 WBC RBC Hgb Hct MCV MCH MCHC RDW Plt Count MPV Absolute Neuts (auto) Neutrophils % Neutrophils % (Manual) Band Neutrophils % Lymphocytes % Lymphocytes % (Manual) Monocytes % Monocytes % (Manual) Eosinophils % Eosinophils % (Manual) Basophils % Basophils % (Manual) Myelocytes % (Man) Promyelocytes % (Man) Blast Cells % (Manual) Nucleated RBC % Metamyelocytes Hypochromia Platelet Estimate Platelet Comment Polychromasia Poikilocytosis Anisocytosis Microcytosis Macrocytosis Spherocytes PT with INR INR PTT (Actin FS) D-Dimer 1379 H VBG pH POC VBG pCO2 POC VBG pO2 VBG HCO3 VBG O2 Sat (Solomon) VBG Base Excess Sodium Potassium Chloride Carbon Dioxide Anion Gap BUN Creatinine Est GFR (CKD-EPI)AfAm Est GFR (CKD-EPI)NonAf Random Glucose Lactic Acid Calcium Phosphorus Magnesium Ferritin Total Bilirubin Direct Bilirubin AST ALT Alkaline Phosphatase LD Total Creatine Kinase Creatine Kinase Index CK-MB (CK-2) < 1.0 Troponin I C-Reactive Protein Total Protein Albumin Urine Color Yellow Urine Appearance Clear Urine pH 6.0 Ur Specific [place] 1.029 Urine Protein 1+ H Urine Glucose (UA) Negative Urine Ketones 1+ H Urine Blood 1+ H Urine Nitrite Negative Urine Bilirubin Negative Urine Urobilinogen 0.2 Ur Leukocyte Esterase Negative Urine WBC (Auto) 14 Urine RBC (Auto) 25 Urine Casts (Auto) 0 U Epithel Cells (Auto) 18 Urine Bacteria (Auto) 35 01/30/20 01/30/20 01/30/20 06:52 06:52 06:52 WBC 5.4 RBC 4.14 Hgb 12.2 Hct 36.5 MCV 88.3 MCH 29.5 MCHC 33.4 RDW 14.4 Plt Count 104 L MPV 10.8 Absolute Neuts (auto) 3.3 Neutrophils % 61.4 Neutrophils % (Manual) 49.5 Band Neutrophils % 5.1 Lymphocytes % 10.8 D Lymphocytes % (Manual) 12.1 D Monocytes % 26.7 H Monocytes % (Manual) 23 H Eosinophils % 0.8 Eosinophils % (Manual) 2.0 D Basophils % 0.3 Basophils % (Manual) 1.0 D Myelocytes % (Man) 0 Promyelocytes % (Man) 0 Blast Cells % (Manual) 0 Nucleated RBC % 0 Metamyelocytes 0 Hypochromia 0 Platelet Estimate Decreased Platelet Comment Present Polychromasia 0 Poikilocytosis 1+ Anisocytosis 1+ Microcytosis 1+ Macrocytosis 0 Spherocytes 1+ PT with INR INR PTT (Actin FS) D-Dimer 1383 H VBG pH POC VBG pCO2 POC VBG pO2 VBG HCO3 VBG O2 Sat (Solomon) VBG Base Excess Sodium 139 Potassium 3.5 Chloride 104 Carbon Dioxide 28 Anion Gap 7 L BUN 8.1 Creatinine 0.7 Est GFR (CKD-EPI)AfAm 94.18 Est GFR (CKD-EPI)NonAf 81.26 Random Glucose 131 H Lactic Acid Calcium 8.3 L Phosphorus 3.2 Magnesium 1.8 Ferritin Total Bilirubin 0.6 Direct Bilirubin AST 80 H ALT 108 H Alkaline Phosphatase 69 LD Total 258 H Creatine Kinase Creatine Kinase Index CK-MB (CK-2) Troponin I C-Reactive Protein Total Protein 7.2 Albumin 3.7 Urine Color Urine Appearance Urine pH Ur Specific [place] Urine Protein Urine Glucose (UA) Urine Ketones Urine Blood Urine Nitrite Urine Bilirubin Urine Urobilinogen Ur Leukocyte Esterase Urine WBC (Auto) Urine RBC (Auto) Urine Casts (Auto) U Epithel Cells (Auto) Urine Bacteria (Auto) Active Medications Generic Name Dose Route Start Last Admin Trade Name Freq PRN Reason Stop Dose Admin Acetaminophen 1,000 mg 01/30/20 03:38 01/30/20 03:45 Ofirmev Injection - IVPB 01/31/20 03:39 1,000 mg Q6H PRN Administration FEVER Amlodipine Besylate 10 mg 01/30/20 10:00 01/30/20 10:25 Norvasc - PO 10 mg DAILY SALLY Administration Enoxaparin Sodium 40 mg 01/30/20 10:00 01/30/20 10:25 Lovenox - SQ 40 mg DAILY SALLY Administration Radiological data in the hospital chest x-ray is normal CTA of the chest shows no pulmonary embolism Mild bilateral interstitial markings in the bases but there is no pneumonia and there is incidental finding of fatty liver and small hiatal hernia. ASSESSMENT/PLAN: 79 y.o. F PMH asthma, HTN, RLE DVT (diagnosed 2 yrs ago, pt not sure if still on AC?), OA, vertigo, COVID-19 pneumonitis 07/2019 presenting to the ED for shortness of breath. Will wait for Coville PCR repeat Continue IV antibiotics and nebulizer. Tylenol for the fever Will restart medication for hypertension she takes amlodipine Awaiting for culture sensitivities. History of DVT but she does not remember if she take any medication for for that. Current Medications Generic Name Dose Route Start Last Admin Trade Name Freq PRN Reason Stop Dose Admin Acetaminophen 1,000 mg 01/30/20 03:38 01/30/20 03:45 Ofirmev Injection - IVPB 01/31/20 03:39 1,000 mg Q6H PRN Administration FEVER Amlodipine Besylate 10 mg 01/30/20 10:00 01/30/20 10:25 Norvasc - PO 10 mg DAILY SALLY Administration Enoxaparin Sodium 40 mg 01/30/20 10:00 01/30/20 10:25 Lovenox - SQ 40 mg DAILY SALLY Administration Visit type - Emergency Visit Emergency Visit: Yes ED Registration Date: 01/29/20 Care time: The patient presented to the Emergency Department on the above date and was hospitalized for further evaluation of their emergent condition. - New Patient This patient is new to me today: Yes Date on this admission: 01/30/20 - Critical Care Critical Care patient: No - Discharge Referral Referred to [facility] Med P.C[facility] No - Medication Review Med list reviewed for High Risk Meds patients 65 and older: Yes
[2020-01-31] MEDS: amLODIPine BESYLATE 10 MG TABLET (FP) PO SCH (10:22)
[2020-01-31] MEDS: ENOXAPARIN NA (PORCINE) 40 MG/0.4 ML DISP.SYRIN SQ SCH (10:22)
--- NOTE | 2020-01-31 10:26 | PN ---
Physical Exam: SUBJECTIVE: Patient seen and examined. Pt is [place]an-speaking. Nurse at bedside provided interpretation. Pt stated breathing has improved. Pt denied shortness of breath, chest pain, abdominal pain, nausea, vomiting or diarrhea. OBJECTIVE: Vital Signs Period Temp Pulse Resp BP Sys/Santo Pulse Ox Last 24 Hr 98.6 F-100.9 F 72-88 17-20 134-149/58-71 95-95 GENERAL: AAOx3, not in acute distress. HEENT: NCAT, EOMI, moist mucus membranes. Oropharynx without exudates. CARDIAC: S1, S2 present. Regular rate and rhythm. No murmurs. RESPIRATORY: CTA b/l. No wheezes. ABDOMEN: Soft, non-distended. Non-tender to palpation. Normoactive bowel sounds. EXTREMITIES: Warm, well-perfused. No edema SKIN: Warm, dry. CBC, BMP 01/30/20 06:52 01/30/20 06:52 Active Medications Amlodipine Besylate (Norvasc -) 10 mg PO DAILY [facility] Last Admin: 01/31/20 10:22 Dose: 10 mg Documented by: Enoxaparin Sodium (Lovenox -) 40 mg SQ DAILY [facility] Last Admin: 01/31/20 10:22 Dose: 40 mg Documented by: CTA chest; 01/30/2020 Slightly limited examination without gross evidence of a pulmonary embolus within the main pulmonary artery and its proximal branches, bilaterally. Mild bilateral increased interstitial lung markings and minimal bibasal atelectatic changes without evidence of acute lung disease Fatty liver. Small hiatus hernia CXR; 01/29/2020 No acute chest pathology at this time. ASSESSMENT/PLAN: 79 year old F with PMG asthma, HTN, RLE DVT (pt unsure if on AC, pharmacy closed 01/30), OA, vertigo and COVID pneumonitis in 07/2019 presented ED for shortness of breath. Pt admitted due to sepsis secondary to CAP vs. COVID re-infection or reactive sequelae. Shortness of breath, secondary to possible CAP vs COVID re-infection/reactive sequelae -COVID PCR negative on this admission. -pt COVID positive in 07/2019; Did not qualify for plaquenil. Received azithromycin and discharged. -CTA chest and CXR as above. -D-dimer, CRP elevated. LDH downtrending. Ferritin normal. Will continue to trend. -Sputum cx pending, ucx negative, urine legionella/strep negative, Bcx negative thus far. -Infectious mono assay pending. - Saturating 95% on RA - Tmax 100.9 in last 24 hours, given tylenol. Currently afebrile - ID consulted. Pending recommendations. RLE DVT -Unclear if pt on AC. Pharmacy closed today. -Ppx lovenox 40 mg qD HTN - c/w amlodipine 10mg qD - monitor hemodynamics FEN -No standing fluids - replete electrolytes as needed -Sodium controlled diet Dispo: continue to monitor on med-surg. Visit type - Emergency Visit Emergency Visit: Yes ED Registration Date: 01/29/20 Care time: The patient presented to the Emergency Department on the above date and was hospitalized for further evaluation of their emergent condition. - New Patient This patient is new to me today: Yes Date on this admission: 01/31/20 - Critical Care Critical Care patient: No - Medication Review Med list reviewed for High Risk Meds patients 65 and older: Yes ATTENDING PHYSICIAN STATEMENT I saw and evaluated the patient. I reviewed the resident's note and discussed the case with the resident. I agree with the resident's findings and plan as documented. SUBJECTIVE: OBJECTIVE: ASSESSMENT AND PLAN:
--- NOTE | 2020-01-31 18:49 | PN ---
Teaching Attending Note Name of Resident: Eli Marie ATTENDING PHYSICIAN STATEMENT I saw and evaluated the patient. I reviewed the resident's note and discussed the case with the resident. I agree with the resident's findings and plan as documented. SUBJECTIVE: OBJECTIVE: ASSESSMENT AND PLAN: 79 y.o. Female with a PMHx notable for asthma, HTN, RLE DVT (diagnosed 2 yrs ago, patient not sure if still on AC?), OA, vertigo, COVID-19 pneumonitis 07/2019 presenting to the ED for shortness of breath. Repeat COVID-19 pcr pending UA negative CT chest : negative for PE but mild interstitial markings Plan for empiric IV antibiotics. Tylenol prn for the fever # HTN- monitor BP on norvasc # History of DVT- unable to recall if she takes any medication for that
[2020-02-01 07:30] LABS: HEMATOCRIT 34.6 % (32.4-45.2); HEMOGLOBIN 11.4 GM/dL (10.7-15.3); MCH 28.8 pg (25.7-33.7); MCHC 32.9 g/dl (32.0-36.0); MEAN CELL VOLUME 87.4 fl (80-96); MEAN PLT VOLUME 10.9 fl (7.5-11.1); PLATELET COUNT 98 K/MM3 (134-434); RBC 3.96 M/mm3 (3.60-5.2); RDW 14.3 % (11.6-15.6); WHITE BLOOD COUNT 4.8 K/mm3 (4.0-10.0)
[2020-02-01 07:56] LABS: BLOOD UREA NITROGEN 10.4 mg/dL (7-18); CALCIUM 8.5 mg/dL (8.5-10.1); CREATININE 0.6 mg/dL (0.55-1.3); POTASSIUM 3.5 mmol/L (3.5-5.1)
[2020-02-01] MEDS: amLODIPine BESYLATE 10 MG TABLET (FP) PO SCH (09:37)
[2020-02-01] MEDS: ENOXAPARIN NA (PORCINE) 40 MG/0.4 ML DISP.SYRIN SQ SCH (09:37)
--- NOTE | 2020-02-01 11:30 | PN ---
Progress Note (short form) - Note Progress Note: ID CONSULT DICTATED FEVER, CHILLS, FATIGUE, COUGH CT CHEST NO INFILTRATE S/P COVID-19 (08/12) NOW PCR (-) MAJOR PCN ALLERGY THROMBOCYTOPENIA/ ELEVATED LFTS ? VIRAL ? TICK RELATED OBTAIN TICK SEROLOGY EMPIRIC DOXYCYCLINE
[2020-02-01] MEDS: DOXYCYCLINE INJECTION 100 MG in DEXTROSE 5%-WATER - 100 ML IVPB SCH ×2 (13:17→21:44)
--- NOTE | 2020-02-01 14:59 | CONS ---
DATE OF CONSULTATION: DATE OF DICTATION: 02/01/2020 The patient is an 79-year-old female who is evaluated for fever. The patient was diagnosed with COVID-19 in July 2019. She successfully recovered. She is now admitted with a 2-day history of worsening shortness of breath, right chest pain, chills, generalized arthralgias, myalgias, fatigue, and a nonproductive cough. In the emergency room she was noted to have fever of 102.6. Chest x-ray was negative. CAT scan was negative for pulmonary embolism or pneumonia. It did show bibasilar atelectasis. At the present time she is awake and responsive. She has no focal complaint. She denies any chest pain, shortness of breath, cough, or sputum production. No vomiting or diarrhea. No dysuria or hematuria. She appears comfortable on nasal cannula O2. Admitting laboratories showed a low normal white count with thrombocytopenia and slightly elevated liver enzymes. She denies any tick exposure. No known ill contacts. PAST MEDICAL HISTORY: Positive for COVID-19 in July 2019, asthma, hypertension, osteoarthritis, vertigo, right lower extremity DVT 2 years ago. ALLERGIES: PENICILLIN, ACCORDING TO THE CHART SHE HAS A HISTORY OF ANAPHYLAXIS. MEDICATIONS: Include amlodipine. SOCIAL HISTORY: She resides in the community. She is a nonsmoker, nondrinker. REVIEW OF SYSTEMS: Neurologic: No loss of consciousness, seizure activity, focal weakness. Cardiac: As per HPI. Respiratory: As per HPI. Gastrointestinal: Negative vomiting or diarrhea. Genitourinary: Negative fever, urinary tract infection. LABORATORY DATA: White count 4.8, hematocrit 34.6, platelets 98,000. Differential 49 neutrophils, 5 bands, 10 lymphocytes, 23 monocytes. Lactic acid 1.3, ferritin 72. D-dimer 1109, LDH 246, C-reactive protein 1.0, total bilirubin 0.6, alkaline phosphatase 69, AST 80, ALT 108. Urinalysis: 14 white cells. COVID-19, PCR negative. Blood cultures negative. Urine legionella antigen negative. Sputum culture normal storm. PHYSICAL EXAMINATION: General: She is awake and alert. She is not acutely toxic appearing. Vital Signs: Temperature 98.7, T-max 102.6, blood pressure 124/51, pulse 55 and regular, respirations 18 per minute. HEENT: Sclerae anicteric. Heart: S1, S2. Lungs: Clear bilaterally. Abdomen: Obese, soft, nontender. No suprapubic or flank tenderness. Extremities: Edema 1+. IMPRESSION: 1. Fever, chills, fatigue, cough. CAT scan negative for acute infiltrate. 2. Status post COVID-19, now PCR negative. 3. History of major PENICILLIN ALLERGY. 4. Thrombocytopenia/elevated liver enzymes. Rule out viral versus tick-related illness. PLAN: Will order tick serology, empiric antibiotic coverage with doxycycline. Will follow. Thank you for the kind referral. VALDO CHAUDHRY M.D. [id number]
--- NOTE | 2020-02-01 17:00 | PN ---
Physical Exam: SUBJECTIVE: Patient seen and examined. No acute events overnight. Pt stated that she feels well. OBJECTIVE: Vital Signs Period Temp Pulse Resp BP Sys/Santo Pulse Ox Last 24 Hr 98.1 F-98.7 F 55-71 17-18 124-160/51-87 92-100 GENERAL: AAOx3, not in acute distress. HEENT: NCAT, EOMI, PERRL, moist mucus membranes CARDIAC: RRR, s1, s2 present. No murmurs. RESPIRATORY: CTA b/l. No wheezes. ABDOMEN: Obese, nontender to palpation, nondistended. Normoactive bowel sounds. EXTREMITIES: warm, well-perfused. No edema. SKIN: warm, dry CBC, BMP 02/01/20 07:00 02/01/20 07:00 Active Medications Amlodipine Besylate (Norvasc -) 10 mg PO DAILY FOR[facility] Last Admin: 02/01/20 09:37 Dose: 10 mg Documented by: Doxycycline Hyclate 100 mg/ (Dextrose) 100 mls @ 100 mls/hr IVPB BID [facility] Last Admin: 02/01/20 13:17 Dose: 100 mls/hr Documented by: CTA chest; 01/30/2020 Slightly limited examination without gross evidence of a pulmonary embolus within the main pulmonary artery and its proximal branches, bilaterally. Mild bilateral increased interstitial lung markings and minimal bibasal atelectatic changes without evidence of acute lung disease Fatty liver. Small hiatus hernia CXR; 01/29/2020 No acute chest pathology at this time. ASSESSMENT/PLAN: 79 year old F with PMG asthma, HTN, RLE DVT (pt unsure if on AC, pharmacy closed 01/30), OA, vertigo and COVID pneumonitis in 07/2019 presented ED for shortness of breath. Pt admitted due to sepsis secondary to CAP vs. COVID re-infection or reactive sequelae. Shortness of breath, secondary to possible CAP vs COVID re-infection/reactive sequelae -COVID PCR negative on this admission. -pt COVID positive in 07/2019; Did not qualify for plaquenil. Received az ithromycin and discharged. -CTA chest and CXR as above. -CRP elevated. LDH, D-dimer downtrending. Ferritin normal. Will continue to trend. -Sputum cx pending, ucx negative, urine legionella/strep negative, Bcx negative thus far. -Infectious mono assay pending. - Saturating 96% on RA - Currently afebrile - ID consulted. F/u tick serology. Start empiric doxycycline. -thrombocytopenia/elevated LFT, viral? tick related? RLE DVT -Pt is not on AC at home. -d/c lovenox, due to low Plt, concern for HIT. HTN - c/w amlodipine 10mg qD - monitor hemodynamics FEN -No standing fluids - replete electrolytes as needed -Sodium controlled diet Ppx -DVT: SCD's Dispo: continue to monitor on med-surg. Visit type - Emergency Visit Emergency Visit: Yes ED Registration Date: 01/29/20 Care time: The patient presented to the Emergency Department on the above date and was hospitalized for further evaluation of their emergent condition. - New Patient This patient is new to me today: No - Critical Care Critical Care patient: No - Medication Review Med list reviewed for High Risk Meds patients 65 and older: Yes ATTENDING PHYSICIAN STATEMENT I saw and evaluated the patient. I reviewed the resident's note and discussed the case with the resident. I agree with the resident's findings and plan as documented. SUBJECTIVE: OBJECTIVE: ASSESSMENT AND PLAN:
--- NOTE | 2020-02-01 19:02 | PN ---
Teaching Attending Note Name of Resident: Fay John ATTENDING PHYSICIAN STATEMENT I saw and evaluated the patient. I reviewed the resident's note and discussed the case with the resident. I agree with the resident's findings and plan as documented. SUBJECTIVE: She continues to feel weak OBJECTIVE: Vital Signs Temperature 98.7 F 02/01/20 13:40 Pulse Rate 71 02/01/20 13:40 Respiratory Rate 18 02/01/20 13:40 Blood Pressure 160/87 02/01/20 13:40 O2 Sat by Pulse Oximetry (%) 96 02/01/20 10:00 PE:per resident's note CBCD WBC 4.8 K/mm3 (4.0-10.0) 02/01/20 07:00 RBC 3.96 M/mm3 (3.60-5.2) 02/01/20 07:00 Hgb 11.4 GM/dL (10.7-15.3) 02/01/20 07:00 Hct 34.6 % (32.4-45.2) 02/01/20 07:00 MCV 87.4 fl (80-96) 02/01/20 07:00 MCHC 32.9 g/dl (32.0-36.0) 02/01/20 07:00 RDW 14.3 % (11.6-15.6) 02/01/20 07:00 Plt Count 98 K/MM3 (134-434) L 02/01/20 07:00 MPV 10.9 fl (7.5-11.1) 02/01/20 07:00 CMP Sodium 140 mmol/L (136-145) 02/01/20 07:00 Potassium 3.5 mmol/L (3.5-5.1) 02/01/20 07:00 Chloride 103 mmol/L (98-107) 02/01/20 07:00 Carbon Dioxide 29 mmol/L (21-32) 02/01/20 07:00 Anion Gap 8 MMOL/L (8-16) 02/01/20 07:00 BUN 10.4 mg/dL (7-18) 02/01/20 07:00 Creatinine 0.6 mg/dL (0.55-1.3) 02/01/20 07:00 Random Glucose 107 mg/dL (74-106) H 02/01/20 07:00 Calcium 8.5 mg/dL (8.5-10.1) 02/01/20 07:00 Total Bilirubin 0.6 mg/dL (0.2-1) 01/30/20 06:52 AST 80 U/L (15-37) H 01/30/20 06:52 ALT 108 U/L (13-61) H 01/30/20 06:52 Alkaline Phosphatase 69 U/L (45-117) 01/30/20 06:52 Total Protein 7.2 g/dl (6.4-8.2) 01/30/20 06:52 Albumin 3.7 g/dl (3.4-5.0) 01/30/20 06:52 CARDIAC ENZYMES Creatine Kinase 225 U/L (26-192) H 01/29/20 20:50 Troponin I < 0.02 ng/ml (0.00-0.05) 01/29/20 20:50 Current Medications Generic Name Dose Route Start Last Admin Trade Name Freq PRN Reason Stop Dose Admin Amlodipine Besylate 10 mg 01/30/20 10:00 02/01/20 09:37 Norvasc - PO 10 mg DAILY SALLY Administration Doxycycline Hyclate 100 mg/ 100 mls @ 100 mls/hr 02/01/20 11:45 02/01/20 13:17 Dextrose IVPB 100 mls/hr BID SALLY Administration Home Medications Medication Instructions Recorded Amlodipine Besylate [Norvasc -] 10 mg PO DAILY 08/16/19 Cetirizine HCl [Zyrtec -] 10 mg PO DAILY 08/16/19 Microbiology 02/01/20 15:21 Blood - Peripheral Venous Blood Parasites Smear - Preliminary 01/30/20 21:00 Sputum - Expectorated Gram Stain - Final 01/30/20 21:00 Sputum - Expectorated Sputum Culture - Final NORMAL RESPIRATORY ADRIÁN 01/29/20 20:50 Blood - Peripheral Venous Blood Culture - Preliminary NO GROWTH OBTAINED AFTER 72 HOURS, INCUBATION TO CONTINUE FOR 2 DAYS. 01/29/20 20:50 Blood - Peripheral Venous Blood Culture - Preliminary NO GROWTH OBTAINED AFTER 72 HOURS, INCUBATION TO CONTINUE FOR 2 DAYS. 01/30/20 05:00 Urine - Urine - Catheterized Urine Culture - Final NO GROWTH OBTAINED 01/30/20 05:00 Urine For Antigen Detection Legionella Antigen - Final 01/30/20 05:00 Urine For Antigen Detection Streptococcus pneumoniae Antigen (M - Final CTA chest on 01/30/2020:Slightly limited examination without gross evidence of a pulmonary embolus within the main pulmonary artery and its proximal branches, bilaterally. Mild bilateral increased interstitial lung markings and minimal bibasal atelectatic changes without evidence of acute lung disease Fatty liver. Small hiatus hernia CXR on 01/29/2020:No acute chest pathology at this time. ASSESSMENT/PLAN: This patient is an 79 yof with PMHX OF asthma, HTN, RLE DVT(2 yrs ago) , OA, vertigo and COVID pneumonitis in 07/2019 presented to the ED for shortness of breath. Pt admitted due to sepsis secondary to CAP vs. COVID re-infection. # Acute SOB possible due to CAP vs COVID re-infection with COVID PCR negative on this admission. will follow the markers, COVID positive on 07/2019. -CRP elevated. LDH, D-dimer downtrending. Ferritin normal. Will continue to trend. CTA no PE -Sputum cx no growth so far.ucx negative, urine legionella/strep negative, Bcx negative so far. Infectious mono assay pending. -Saturating 96% on RA, ID consulted. F/u tick serology. Started on empiric doxycycline as per ID. #thrombocytopenia with elevated LFT, viral vs tick related ; follow up with ID and PMD as an outpatient. follow the serology #hx of RLE DVT 2 years ago #HTN: on amlodipine 10mg qD DVT Px: SCD's continue to monitor since the markers are trending up ONE MORE DAY IF STABLE IN AM DC THE PATIENT HOME.
[2020-02-01] MEDS ORDERED: PT OWN MED DRAWER 7, Y5N ONE (21:38)
[2020-02-02 08:29] LABS: HEMATOCRIT 35.3 % (32.4-45.2); HEMOGLOBIN 11.5 GM/dL (10.7-15.3); MCH 28.7 pg (25.7-33.7); MCHC 32.6 g/dl (32.0-36.0); MEAN PLT VOLUME 11.3 fl (7.5-11.1); PLATELET COUNT 121 K/MM3 (134-434); RBC 4.01 M/mm3 (3.60-5.2); RDW 14.4 % (11.6-15.6); WHITE BLOOD COUNT 5.9 K/mm3 (4.0-10.0)
[2020-02-02 08:36] LABS: ALBUMIN 3.7 g/dl (3.4-5.0); BILIRUBIN,TOTAL 0.6 mg/dL (0.2-1); BLOOD UREA NITROGEN 9.6 mg/dL (7-18); CALCIUM 8.5 mg/dL (8.5-10.1); CREATININE 0.6 mg/dL (0.55-1.3); POTASSIUM 3.5 mmol/L (3.5-5.1); TOT PROT 7.3 g/dl (6.4-8.2)
[2020-02-02] MEDS: DOXYCYCLINE INJECTION 100 MG in DEXTROSE 5%-WATER - 100 ML IVPB SCH (09:37)
[2020-02-02] MEDS: amLODIPine BESYLATE 10 MG TABLET (FP) PO SCH (09:38)
[2020-02-02 14:08] VITALS: BP 149/71; PULSE 73; TEMP 98.4
--- NOTE | 2020-02-02 14:30 | DS ---
Physical Exam: SUBJECTIVE: Patient seen and examined. No acute events overnight. Pt stated that her breathing has improved. She denies any fevers, chills, SOB, C/p, n/v/d, changes in urinary patterns or numbness/tingling. OBJECTIVE: Vital Signs Period Temp Pulse Resp BP Sys/Santo Pulse Ox Last 24 Hr 98.4 F-99.0 F 61-75 18-20 121-149/51-81 95-97 PHYSICAL EXAM GENERAL: AAOx3, not in acute distress. HEENT: NCAT, EOMI, PERRL, moist mucus membranes CARDIAC: RRR, s1, s2 present. No murmurs. RESPIRATORY: CTA b/l. No wheezes. ABDOMEN: Obese, nontender to palpation, nondistended. Normoactive bowel sounds. EXTREMITIES: warm, well-perfused. No edema. SKIN: warm, dry LABS CBC, BMP 02/02/20 07:25 02/02/20 07:25 HOSPITAL COURSE: 79 year old F with PMG asthma, HTN, RLE DVT (pt unsure if on AC, pharmacy closed 01/30), OA, vertigo and COVID pneumonitis in 07/2019 presented ED for shortness of breath. Pt admitted due to sepsis secondary to CAP vs. COVID re-infection or reactive sequelae. However, pt was COVID PCR negative this admission. CTA showed no embolus and showed minimal bibasilar atelectic changes. CXR was without acute pathology. Inflammatory markers were downtrending. Sputum,blood and urine cultures were all negative. ID consulted. Suspicion for tick-borne illness or vi ral illness. Tick serology pending. Infectious mono assay pending. Pt is currently hemodynamically stable, afebrile and saturating well on room air. She is to follow up w/ ID for review of tick serology. Pt is medically optimized for discharge to her home. Date of Admission:01/29/20 Date of Discharge: 02/02/20 Minutes to complete discharge: 36 Discharge Summary Problems reviewed: Yes Reason For Visit: FEVER/DYSPNEA Condition: Stable - Instructions Diet, Activity, Other Instructions: Your visit: You were admitted to the hospital for shortness of breath and fever. Your COVID- 19 test was negative. We did imaging of your chest. There were no concerning findings on these images. We did a blood test to evaluate the presence of any infectious organisms. You were treated with medication with improvement of your symptoms. Additional image findings: Incidentally, you were found to have a small hiatus hernia. If you have any symptoms of nausea, vomiting or heartburn, please follow up with your primary care doctor. Medications changes: -Please continue to take Doxycycline 100 mg twice a day for 14 days. -Continue to take all other home medications as prescribed. Follow up: - Please follow-up with your infectious disease doctor, Dr. Deluca, in 1 week to follow up on your infectious disease lab results. - Visit with your Primary Care Provider, Dr. Bautista, in 2 weeks. You may follow up to evaluate your hiatal hernia. Additional Instructions: -You are being discharged to your home. -Please return to the Emergency Department if you experience worsening pain, fevers, chills, shortness of breath, or chest pain, or if you experience any worsening, new or concerning symptoms. Referrals: Ortiz Deluca MD [Staff Physician] - 2 Weeks Jesi Bautista MD [Primary Care Provider] - 1 Week Disposition: HOME - Home Medications Comprehensive Discharge Medication List: Ambulatory Orders Amlodipine Besylate [Norvasc -] 10 mg PO DAILY 08/16/19 Cetirizine HCl [Zyrtec -] 10 mg PO DAILY 08/16/19 Doxycycline Hyclate 100 mg PO BID #28 tablet 02/02/20 This patient is new to me today: No Emergency Visit: Yes ED Registration Date: 01/29/20 Care time: The patient presented to the Emergency Department on the above date and was hospitalized for further evaluation of their emergent condition. Critical Care patient: No - Discharge Referral Referred to [facility] No ATTENDING PHYSICIAN STATEMENT I saw and evaluated the patient. I reviewed the resident's note and discussed the case with the resident. I agree with the resident's findings and plan as documented. SUBJECTIVE: OBJECTIVE: ASSESSMENT AND PLAN:
--- NOTE | 2020-02-02 17:49 | PN ---
Teaching Attending Note Name of Resident: Fay John ATTENDING PHYSICIAN STATEMENT I saw and evaluated the patient. I reviewed the resident's note and discussed the case with the resident. I agree with the resident's findings and plan as documented. SUBJECTIVE: Patient is comfortable feels better, wants to go home. OBJECTIVE: Vital Signs Temperature 98.4 F 02/02/20 14:04 Pulse Rate 73 02/02/20 14:04 Respiratory Rate 20 02/02/20 14:04 Blood Pressure 149/71 02/02/20 14:04 O2 Sat by Pulse Oximetry (%) 95 02/02/20 14:04 PE: per resident's note CBCD WBC 5.9 K/mm3 (4.0-10.0) 02/02/20 07:25 RBC 4.01 M/mm3 (3.60-5.2) 02/02/20 07:25 Hgb 11.5 GM/dL (10.7-15.3) 02/02/20 07:25 Hct 35.3 % (32.4-45.2) 02/02/20 07:25 MCV 88.0 fl (80-96) 02/02/20 07:25 MCHC 32.6 g/dl (32.0-36.0) 02/02/20 07:25 RDW 14.4 % (11.6-15.6) 02/02/20 07:25 Plt Count 121 K/MM3 (134-434) L D 02/02/20 07:25 MPV 11.3 fl (7.5-11.1) H 02/02/20 07:25 CMP Sodium 140 mmol/L (136-145) 02/02/20 07:25 Potassium 3.5 mmol/L (3.5-5.1) 02/02/20 07:25 Chloride 104 mmol/L (98-107) 02/02/20 07:25 Carbon Dioxide 29 mmol/L (21-32) 02/02/20 07:25 Anion Gap 7 MMOL/L (8-16) L 02/02/20 07:25 BUN 9.6 mg/dL (7-18) 02/02/20 07:25 Creatinine 0.6 mg/dL (0.55-1.3) 02/02/20 07:25 Random Glucose 105 mg/dL (74-106) 02/02/20 07:25 Calcium 8.5 mg/dL (8.5-10.1) 02/02/20 07:25 Total Bilirubin 0.6 mg/dL (0.2-1) 02/02/20 07:25 AST 48 U/L (15-37) H 02/02/20 07:25 ALT 99 U/L (13-61) H 02/02/20 07:25 Alkaline Phosphatase 70 U/L (45-117) 02/02/20 07:25 Total Protein 7.3 g/dl (6.4-8.2) 02/02/20 07:25 Albumin 3.7 g/dl (3.4-5.0) 02/02/20 07:25 CARDIAC ENZYMES Creatine Kinase 225 U/L (26-192) H 01/29/20 20:50 Troponin I < 0.02 ng/ml (0.00-0.05) 01/29/20 20:50 Home Medications Medication Instructions Recorded RX: Amlodipine Besylate [Norvasc -] 10 mg PO DAILY 08/16/19 RX: Cetirizine HCl [Zyrtec -] 10 mg PO DAILY 08/16/19 RX: Doxycycline Hyclate 100 mg PO BID #28 tablet 02/02/20 Microbiology 02/01/20 15:21 Blood - Peripheral Venous Blood Parasites Smear - Preliminary 01/30/20 21:00 Sputum - Expectorated Gram Stain - Final 01/30/20 21:00 Sputum - Expectorated Sputum Culture - Final NORMAL RESPIRATORY ADRIÁN 01/29/20 20:50 Blood - Peripheral Venous Blood Culture - Preliminary NO GROWTH OBTAINED AFTER 72 HOURS, INCUBATION TO CONTINUE FOR 2 DAYS. 01/29/20 20:50 Blood - Peripheral Venous Blood Culture - Preliminary NO GROWTH OBTAINED AFTER 72 HOURS, INCUBATION TO CONTINUE FOR 2 DAYS. 01/30/20 05:00 Urine - Urine - Catheterized Urine Culture - Final NO GROWTH OBTAINED 01/30/20 05:00 Urine For Antigen Detection Legionella Antigen - Final 01/30/20 05:00 Urine For Antigen Detection Streptococcus pneumoniae Antigen (M - Final CTA chest on 01/30/2020:Slightly limited examination without gross evidence of a pulmonary embolus within the main pulmonary artery and its proximal branches, bilaterally. Mild bilateral increased interstitial lung markings and minimal bibasal atelectatic changes without evidence of acute lung disease Fatty liver. Small hiatus hernia CXR on 01/29/2020:No acute chest pathology at this time. ASSESSMENT/PLAN: This patient is an 79 yof with PMHX OF asthma, HTN, RLE DVT(2 yrs ago) , OA, vertigo and COVID pneumonitis in 07/2019 presented to the ED for shortness of breath. Pt admitted due to sepsis secondary to CAP vs. COVID re-infection. # Acute SOB improved due to CAP vs COVID re-infection with COVID PCR negative on this admission. all the markers are trending down, COVID positive on 07/2019. PLATELETS IMPROVed , FOLLOW UP WITH id AND PRIMARY , LDH, D-dimer downtrending. Ferritin normal. CTA no PE -Sputum cx no growth so far.ucx negative, urine legionella/strep negative, Bcx negative so far. Infectious mono assay pending. -Saturating 96% on RA, ID consulted. F/u tick serology. Started on empiric doxycycline as per ID. #thrombocytopenia improved , elevated LFT, viral vs tick related ; follow up with ID and PMD as an outpatient. follow the serology as an outpatient. follow up with ID #Hx of RLE DVT 2 years ago #HTN: on amlodipine 10mg qD DVT Px: SCD's Patient is stable to go home on doxycyline for 14 more days
== END 2020-02-02 16:12 | disposition home or self-care (01) | DRG 871 ==
LOC: JER 17:55 → JERBED 22:11 → J7W 01-30 04:21
PROVIDERS: ADMIT Hospitalist; ATTEND Internal Medicine
DX: A41.9 Sepsis, unspecified organism (principal); J18.9 Pneumonia, unspecified organism; J45.909 Unspecified asthma, uncomplicated; I10 Essential (primary) hypertension; M19.90 Unspecified osteoarthritis, unspecified site; R42 Dizziness and giddiness; R06.02 Shortness of breath; K44.9 Diaphragmatic hernia without obstruction or gangrene; D69.6 Thrombocytopenia, unspecified; R74.0 Nonspecific elevation of levels of transaminase and lactic acid dehydrogenase [LDH]; K76.0 Fatty (change of) liver, not elsewhere classified
CPT/HCPCS: 36415; 71045-TC-FY; 71275-TC; 80048; 80053; 81003; 82248; 82550; 82553; 82728; 82803; 82930; 83605; 83615; 83735; 84100; 84484; 85025; 85027; 85379; 85610; 85730; 86140; 86308; 86618; 87040; 87070; 87086; 87205; 87207; 87899; 93005; 93010; 97116-GP; 97161-GP; 99285-25; J0131; Q9967; U0003

== ENCOUNTER 2023-06-02 23:25 | Inpatient (IN) | payer OTHER ==
[2023-06-02 23:34] VITALS: BMI 29.2
[2023-06-03] MEDS ORDERED: SODIUM CHLORIDE 0.9% 500 ML INFUS.BAG IV ONE (00:34)
[2023-06-03] MEDS ORDERED: MECLIZINE HCL 25 MG TABLET (FP) PO ONE (00:35)
[2023-06-03] MEDS ORDERED: MECLIZINE HCL 25 MG TABLET (FP) ONE ×2 (00:49→21:39)
[2023-06-03 00:51] LABS: HEMATOCRIT 39.9 % (32.4-45.2); MCH 28.2 pg (25.7-33.7); MCHC 32.5 g/dl (32.0-36.0); MEAN CELL VOLUME 86.9 fl (80-96); MEAN PLT VOLUME 10.4 fl (7.5-11.1); PLATELET COUNT 159 10^3/uL (134-434); RBC 4.59 M/mm3 (3.60-5.2)
[2023-06-03 01:09] LABS: POTASSIUM 3.9 mmol/L (3.5-5.1)
[2023-06-03 01:11] LABS: BLOOD UREA NITROGEN 19.1 mg/dL (7-18); CALCIUM 9.7 mg/dL (8.5-10.1); MAGNESIUM 2.2 mg/dL (1.8-2.4)
[2023-06-03 01:12] LABS: ALBUMIN 4.6 g/dl (3.4-5.0)
[2023-06-03 01:15] LABS: CREATININE 0.9 mg/dL (0.55-1.3)
[2023-06-03 01:16] LABS: BILIRUBIN,TOTAL 0.4 mg/dL (0.2-1); TOT PROT 8.5 g/dl (6.4-8.2)
[2023-06-03 01:56] LABS: ANISOCYTOSIS 3+; MACROCYTOSIS 0; ROULEAU 2+
[2023-06-03] MEDS ORDERED: amLODIPine BESYLATE 5 MG TABLET (FP) PO ONE ×2 (05:41)
[2023-06-03] MEDS ORDERED: ONDANSETRON 4 MG/2 ML VIAL IVPUSH PRN (05:41)
[2023-06-03] MEDS ORDERED: hydrALAZINE HCL 20 MG/ML VIAL IVPUSH PRN ×3 (05:42→22:37)
[2023-06-03] MEDS ORDERED: ACETAMINOPHEN 1000 MG/100 ML BAG IVPB ONE (06:00)
[2023-06-03] MEDS ORDERED: ASPIRIN 325 MG TABLET PO ONE (06:14)
[2023-06-03] MEDS: MECLIZINE HCL 25 MG TABLET (FP) PO SCH ×3 (06:28→22:03)
[2023-06-03] MEDS ORDERED: ASPIRIN 325 MG TABLET ONE (06:37)
[2023-06-03] MEDS ORDERED: ENOXAPARIN NA (PORCINE) 80 MG/0.8 ML DISP.SYRIN SQ SCH (07:00)
[2023-06-03 08:05] LABS: HEMATOCRIT 38.6 % (32.4-45.2); HEMOGLOBIN 12.3 GM/dL (10.7-15.3); MCHC 31.9 g/dl (32.0-36.0); MEAN CELL VOLUME 87.9 fl (80-96); PLATELET COUNT 143 10^3/uL (134-434); RBC 4.39 M/mm3 (3.60-5.2); WHITE BLOOD COUNT 9.1 K/mm3 (4.0-10.0)
[2023-06-03] MEDS: INSULIN ASPART SLIDING SCALE (NOVOLOG) 1 VIAL SQ SCH ×4 (08:23→22:04)
[2023-06-03] MEDS ORDERED: ENOXAPARIN NA (PORCINE) 80 MG/0.8 ML DISP.SYRIN SQ ONE (08:30)
[2023-06-03 08:37] LABS: POTASSIUM 3.9 mmol/L (3.5-5.1)
[2023-06-03 08:42] LABS: BLOOD UREA NITROGEN 15.9 mg/dL (7-18); CALCIUM 9.3 mg/dL (8.5-10.1)
[2023-06-03 08:45] LABS: CREATININE 0.7 mg/dL (0.55-1.3)
[2023-06-03 08:46] LABS: BILIRUBIN,TOTAL 0.4 mg/dL (0.2-1)
[2023-06-03 08:47] LABS: TOT PROT 7.6 g/dl (6.4-8.2)
[2023-06-03 09:44] LABS: ANISOCYTOSIS 2+; MACROCYTOSIS 0
[2023-06-03] MEDS ORDERED: PATIENT'S OWN MEDICATION (NON-FORMULARY) (Losartan/Hydrochlorothiazide [Losartan-Hctz 100- PO SCH (10:00)
[2023-06-03] MEDS ORDERED: amLODIPine BESYLATE 10 MG TABLET (FP) PO SCH (10:00)
[2023-06-03] MEDS ORDERED: ASPIRIN 81 MG CHEWABLE TABLETS PO SCH (10:00)
[2023-06-03] MEDS ORDERED: ENOXAPARIN NA (PORCINE) 40 MG/0.4 ML DISP.SYRIN SQ SCH (10:00)
[2023-06-03] MEDS: LOSARTAN POTASSIUM 50 MG TABLET PO SCH (10:24)
[2023-06-03] MEDS: HYDROCHLOROTHIAZIDE 12.5 MG CAPSULE (FP) PO SCH (10:24)
[2023-06-03] MEDS ORDERED: ATORVASTATIN CA 20 MG TABLET (FP) ONE (21:39)
[2023-06-03] MEDS ORDERED: hydrALAZINE HCL 20 MG/ML VIAL ONE (21:40)
[2023-06-03] MEDS ORDERED: ATORVASTATIN CA 20 MG TABLET (FP) PO SCH (22:00)
[2023-06-03] MEDS ORDERED: SODIUM CHLORIDE 500 ML IV STA (22:49)
[2023-06-03] MEDS ORDERED: ONDANSETRON 4 MG/2 ML VIAL ONE (22:50)
[2023-06-04] MEDS ORDERED: MECLIZINE HCL 25 MG TABLET (FP) ONE (06:11)
[2023-06-04] MEDS: MECLIZINE HCL 25 MG TABLET (FP) PO SCH (06:40)
[2023-06-04] MEDS ORDERED: GLIMEPIRIDE 2 MG TABLET PO SCH (07:00)
[2023-06-04] MEDS: INSULIN ASPART SLIDING SCALE (NOVOLOG) 1 VIAL SQ SCH ×2 (07:30→11:30)
[2023-06-04 09:34] VITALS: PULSE 84; RESP 14; TEMP 99.3
[2023-06-04] MEDS ORDERED: ASPIRIN 81 MG CHEWABLE TABLETS PO SCH (10:00)
[2023-06-04] MEDS ORDERED: amLODIPine BESYLATE 10 MG TABLET (FP) PO SCH (10:00)
[2023-06-04] MEDS: HYDROCHLOROTHIAZIDE 12.5 MG CAPSULE (FP) PO SCH (10:11)
[2023-06-04] MEDS: LOSARTAN POTASSIUM 50 MG TABLET PO SCH (10:11)
[2023-06-04 12:40] VITALS: BP 152/61
== END 2023-06-04 12:42 | disposition home or self-care (01) | DRG 305 ==
LOC: JER 23:25 → JERBED 06-03 05:33
PROVIDERS: ADMIT Internal Medicine; ATTEND Internal Medicine
DX: I16.1 Hypertensive emergency (principal); I24.89 Other forms of acute ischemic heart disease; J45.909 Unspecified asthma, uncomplicated; Z86.718 Personal history of other venous thrombosis and embolism; E11.9 Type 2 diabetes mellitus without complications; R42 Dizziness and giddiness
CPT/HCPCS: 0241U-QW; 36415; 70450-TC; 71045-TC-FY; 80053; 80061; 82962; 83036; 83735; 83880; 84484; 85025; 93005; 93010; 93306-TC; 93971-TC; 99285-25